=== PATIENT | female | born 1985 | race Asian ===

== ENCOUNTER 2021-07-01 06:57 | Inpatient (IN) | payer OTHER ==
[~2021-07-01] VITALS: Ht 152.4 cm; Wt 61.9 kg
--- NOTE | 2021-07-01 07:48 | PHYS DOC ---
General Adult EDM: Chief Complaint: SOB HPI: HPI: 35-year-old female presents with COVID-19. The patient took a home test about 10 days ago that confirmed she has COVID-19. She is also here with her who has COVID-19. They came in today because they called the [facility]Nurse line and they advised that they come in for evaluation. She has been having some mild shortness of breath and frequent cough, general fatigue and body aches. She denies chest pain. Fevers up to 101. Review of Systems: Review of Systems: Constitutional: Fever, body aches, fatigue Eyes: Denies change in visual acuity HENT: Denies nasal congestion or sore throat Respiratory: Cough with shortness of breath Cardiovascular: Denies chest pain or edema GI: Denies abdominal pain, nausea, vomiting, bloody stools or diarrhea : Denies dysuria Musculoskeletal: Denies back pain or joint pain Integument: Denies rash Neurologic: Denies headache, focal weakness or sensory changes Endocrine: Denies polyuria or polydipsia Lymphatic: Denies swollen glands Psychiatric: Denies depression or anxiety Physical Exam: PE: Constitutional: Well developed, well nourished, no acute distress, non-toxic appearance. [] HENT: Normocephalic, atraumatic, bilateral external ears normal, oropharynx moist, no oral exudates, nose normal. [] Eyes: PERRLA, EOMI, conjunctiva normal, no discharge. [] Neck: Normal range of motion, no tenderness, supple, no stridor. [] Cardiovascular: Heart rate 90, regular rhythm, no murmur [] Lungs & Thorax: Deferred due to isolation [] Abdomen: Bowel sounds normal, soft, no tenderness, no masses, no pulsatile masses. [] Skin: Warm, dry, no erythema, no rash. [] Back: No tenderness, no CVA tenderness. [] Extremities: No tenderness, no cyanosis, no clubbing, ROM intact, no edema. [] Neurologic: Alert and oriented X 3, normal motor function, normal sensory function, no focal deficits noted. [] Psychologic: Affect normal, judgement normal, mood normal. [] EKG: EKG: Sinus rhythm, rate 90, normal axis, no ST elevation or depression. [] Radiology/Procedures: Radiology/Procedures: [] Impressions: AP chest. HISTORY: Covid positive AP view was taken of the chest. There are mild hazy bilateral areas of infiltrate consistent with Covid pneumonia. Heart is normal in size. There is no pleural effusion. IMPRESSION: 1. Bilateral infiltrates consistent with pneumonia. Electronically signed by: Lloyd Porter MD (07/01/2021 7:46 AM) [id number] DICTATED AND SIGNED BY: LLOYD PORTER MD DATE: 07/01/21 0745 CC: BRANDON GILMORE DO; PCP,NO ~MTH0 0 Heart Score: C/O Chest Pain: N/A Risk Factors: Risk Factors: DM, Current or recent (<one month) smoker, HTN, HLP, family history of CAD, obesity. Risk Scores: Score 0 - 3: 2.5% MACE over next 6 weeks - Discharge Home Score 4 - 6: 20.3% MACE over next 6 weeks - Admit for Clinical Observation Score 7 - 10: 72.7% MACE over next 6 weeks - Early Invasive Strategies Course & Med Decision Making: Course & Med Decision Making Pertinent Labs and Imaging studies reviewed. (See chart for details) The patient's labs are significant for hemoglobin of 7. The patient has no previous history of anemia. I do not have any history in my chart. Her chest x-ray is suggestive of bilateral pneumonia consistent with COVID-19. I will treat her with azithromycin alone as she has a penicillin allergy. Have also given her 10 mg of dexamethasone. I spoke with hospitalist, Dr. Simms and since the patient is on the bubble for transfusion, she does not meet criteria. We will give her 400 mg of IV iron. I have advised that she follow-up with her primary physician about her iron deficiency anemia. I will discharge her with a prescription for azithromycin. If her condition worsens in any way, she will return to the emergency room. She is stable for discharge at this time. [] Dragon Disclaimer: Dragon Disclaimer: This electronic medical record was generated, in whole or in part, using a voice recognition dictation system. Departure Departure: Impression: Primary Impression: COVID-19 Additional Impression: Iron deficiency anemia Qualified Codes: D50.9 - Iron deficiency anemia, unspecified Disposition: HOME / SELF CARE / HOMELESS Condition: STABLE Referrals: PCP,PERRY (PCP) Patient Instructions: Iron Deficiency Anemia, [id number] Additional Instructions: You have been tested for or diagnosed with COVID-19. It is an infection caused by a new type of coronavirus. COVID-19 will cause cold-like or mild flu symptoms in most. It can cause more severe symptoms like problems breathing in some. There is no treatment for COVID-19. The body will clear the infection over time. Self-care will help to ease discomfort. Steps to Take: Self-Care Rest as needed. Healthy habits may help you feel better. Steps include: Choose healthy foods including fruits and vegetables. Drink water throughout the day. Get plenty of sleep each night. If you smoke, try to quit. It may ease breathing. Avoid alcohol. Keep Others Healthy The virus can spread to others. Droplets are released every time you sneeze or cough. The droplets can get into the mouth, nose, or eyes of people near you and lead to infection. To lower the chances of spreading COVID-19 to others: Stay at home until your doctor has said it is safe to leave. If you tested positive this will mean staying isolated until both of the following are true: At least 7 days have passed since the start of illness. You are free of fever for at least 72 hours without the use of medicine. During this time: - Avoid public areas, events, or transportation. Do not return to work or school until your doctor has said it is safe to do so. - Call ahead if you need to go to a medical center. Let them know you may have COVID-19. It will help them guide you where to go. They may also ask you to wear a facemask when you come to the office. - If you call for emergency medical services, let them know you may have COVID- 19. While at home: - Try to avoid close contact with others. Stay about 6 feet away. - If possible, spend most of your time in a separate room from others. - Use a face mask if you will be in close contact with others such as sharing a room or vehicle. - Have someone wipe down common surfaces in the home. Use household layout artist every day on areas like doorknobs, counters, or sinks. - Cough or sneeze into a tissue. Throw the tissue away right after use. If a tissue is not available, cough or sneeze into your elbow. - Wash your hands often. Wash them after sneezing or coughing. Use soap and water and wash for at least 20 seconds. Alcohol based hand fur dry cleaner hand can be used if soap and water is not available. - Do not prepare food for others. Avoid sharing personal items like forks, sp oons, or toothbrushes. - Avoid close contact with pets while you are sick. There is no evidence of the virus passing to pets. This is a safety step until more is known about this virus. Isolation can be frustrating. Social interaction can help. Keep in touch with friends and family through phone and tech options. You can still interact with others in your home, just keep a safe distance of about 6 feet. Follow-up: Your doctors office will check in with you to see if there are any changes in your health. You may be asked to keep track of symptoms to share with them. They will also let you know when you are clear to be in public again. Problems to Look Out For: Contact your doctor if your recovery is not going as you expect. Get emergency care if you have problems such as: - Trouble breathing - Nonstop chest pain or pressure - Changes in awareness, confusion, or problems waking - Lips or face have bluish color - Worsening of symptoms If you think you have an emergency, call for emergency medical services right away. As taken from [facility] BRANDON GILMORE DO Jul 01, 2021 07:48
--- NOTE | 2021-07-01 07:53 | EKG ---
[address] [address] Test Date: 2021-07-01 Test Time: 07:41:59 Pat Name: ELIO GODOY Department: Room: Gender: F Cement Paver: : 1985 Requested By: BRANDON GILMORE Order Number: [id number] Reading MD: Measurements Intervals [place] Rate: 90 P: 41 ND: 120 QRS: 85 QRSD: 72 T: 15 QT: 374 QTc: 462 Interpretive Statements SINUS RHYTHM NORMAL ECG RI6.02 No previous ECG available for comparison
[2021-07-01 08:39] LABS: BASO % 0 % (0-3); EOS % 0 % (0-3); HEMATOCRIT 24.1 % (36.0-47.0); LYMPH # 1.2 x10^3/uL (1.0-4.8); LYMPH % 17 % (24-48); MEAN CORPUSCULAR HEMOGLOBIN 17 pg (25-35); MEAN CORPUSCULAR HGB CONC 29 g/dL (31-37); MEAN CORPUSCULAR VOLUME 58 fL (79-100); MONO # 0.5 x10^3/uL (0.0-1.1); MONO % 7 % (0-9); NEUT # 5.1 x10^3uL (1.8-7.7); NEUT % 75 % (31-73); PLATELET COUNT 284 x10^3/uL (140-400); RED BLOOD COUNT 4.17 x10^6/uL (3.50-5.40); RED CELL DISTRIBUTION WIDTH 22.8 % (11.5-14.5); WHITE BLOOD COUNT 6.8 x10^3/uL (4.0-11.0)
[2021-07-01 08:54] LABS: CALCIUM 8.2 mg/dL (8.5-10.1); CREATININE 0.7 mg/dL (0.6-1.0); GFR 94.2; POTASSIUM 3.2 mmol/L (3.5-5.1)
[2021-07-01 09:00] LABS: ALBUMIN 2.9 g/dL (3.4-5.0); ALBUMIN/GLOBULIN RATIO 0.7 (1.0-1.7); TOTAL BILIRUBIN 0.4 mg/dL (0.2-1.0); TOTAL PROTEIN 6.9 g/dL (6.4-8.2)
[2021-07-01] MEDS ORDERED: IRON SUCROSE COMPLEX 400 MG in IV NORMAL SALINE 250ML 250 ML IV ONE (09:45)
[2021-07-01] MEDS ORDERED: DEXAMETHASONE SOD PHOS 10 MG/ML VIAL. IVP ONE (09:45)
[2021-07-01] MEDS ORDERED: AZITHROMYCIN 500 MG in IV NORMAL SALINE 250ML 250 ML IV ONE (09:45)
[2021-07-01] MEDS ORDERED: IV NORMAL SALINE 250ML 250 ML ONE (10:13)
[2021-07-01] MEDS ORDERED: AZITHROMYCIN 500 MG VIAL. IV ONE (10:13)
[2021-07-01] MEDS ORDERED: ONDANSETRON PF 4 MG/2 ML VIAL. ONE (11:11)
[2021-07-01] MEDS ORDERED: ONDANSETRON PF 4 MG/2 ML VIAL. IVP ONE (11:15)
[2021-07-01 11:47] LABS: HYPOCHROMIA PRESENT; POLYCHROMASIA PRESENT; TEAR DROP CELLS PRESENT
[2021-07-01 11:48] LABS: ANISOCYTOSIS PRESENT; MICROCYTOSIS PRESENT; OVALOCYTES PRESENT; SCHISTOCYTES FEW
[2021-07-01 11:50] LABS: PLT ESTIMATE ADEQUATE (ADEQUATE); TARGET CELLS PRESENT
[2021-07-01] MEDS ORDERED: ONDANSETRON PF 4 MG/2 ML VIAL. IVP PRN (15:30)
[2021-07-01 17:39] VITALS: BP 134/61
[2021-07-01 20:15] VITALS: BP 122/75
[2021-07-01] MEDS ORDERED: ACETAMINOPHEN 325 MG TABLET PO PRN (20:15)
[2021-07-01] MEDS: DEXAMETHASONE SOD PHOS 4 MG/ML VIAL. IVP SCH (20:49)
[2021-07-01 22:46] VITALS: BP 136/81
[2021-07-02 05:14] VITALS: BP 105/67
[2021-07-02 06:26] LABS: BASO % 0 % (0-3); EOS % 0 % (0-3); HEMATOCRIT 24.2 % (36.0-47.0); LYMPH # 0.8 x10^3/uL (1.0-4.8); LYMPH % 29 % (24-48); MEAN CORPUSCULAR HEMOGLOBIN 17 pg (25-35); MEAN CORPUSCULAR HGB CONC 29 g/dL (31-37); MEAN CORPUSCULAR VOLUME 58 fL (79-100); MONO # 0.2 x10^3/uL (0.0-1.1); MONO % 9 % (0-9); NEUT # 1.8 x10^3uL (1.8-7.7); NEUT % 62 % (31-73); PLATELET COUNT 380 x10^3/uL (140-400); RED BLOOD COUNT 4.19 x10^6/uL (3.50-5.40); RED CELL DISTRIBUTION WIDTH 23.1 % (11.5-14.5); WHITE BLOOD COUNT 2.9 x10^3/uL (4.0-11.0)
[2021-07-02] MEDS: DEXAMETHASONE SOD PHOS 4 MG/ML VIAL. IVP SCH (08:27)
--- NOTE | 2021-07-02 11:02 | HP ---
ADMIT DATE: 07/01/2021 ATTENDING PHYSICIAN: Dr. Simms. CHIEF COMPLAINT: Shortness of breath. HISTORY OF PRESENT ILLNESS: The patient is a 35-year-old female of [place] origin. She and her where here visiting family members from [place]. She had a home test 10 days ago testing positive for COVID-19. She was short of breath. They were advised to come to the ED. She has had fevers up to 101 degrees Fahrenheit. In addition, she had a low hemoglobin of 7.0 gram, very small indices with MCV of 59. She was given a dose of Venofer in the ED. Initially, she was scheduled to go home, but because of the shortness of breath requires slight amount of supplemental oxygen. She was admitted for further treatment and evaluation. She was given Decadron last night. PAST MEDICAL HISTORY: Significant for chronic iron deficiency. She is a nonsmoker and nondrinker. ALLERGIES: SHE HAS ALLERGIES TO PENICILLIN AND HYDROMORPHONE. EXACT REACTION IS UNCLEAR. MEDICATIONS: She has been on iron in the past. FAMILY HISTORY: Mom and dad are still in [place]. They are in fairly good health. She is . She has a 5-year-old son. REVIEW OF SYSTEMS: All other systems reviewed and turned to be negative. PHYSICAL EXAMINATION: GENERAL: When I saw her, this is a pleasant young female. INITIAL VITAL SIGNS: Showed a blood pressure of 105/67, pulse is 71 and regular. She is afebrile. Oxygen saturation 93% on room air by the time I saw her. HEENT: Head is without trauma. Pupils are reactive. Sclerae nonicteric. Oropharynx clear. NECK: Supple, no bruits. LUNGS: Good breath sounds without any rales or rhonchi. CARDIOVASCULAR: Regular heart tones. ABDOMEN: Soft. EXTREMITIES: Without edema. NEUROLOGIC: Focally intact. SKIN: Warm and dry. LABORATORY DATA: The hemoglobin was 7.0 g/dL, white count 6800. Chemistry panel unremarkable. Chest x-ray on admission showed hazy bilateral infiltrates consistent with atypical pneumonia. ASSESSMENT: 1. A 35-year-old female with COVID pneumonia. 2. Mild dehydration. 3. Mild hypoxemia, improved. 4. Iron deficiency anemia that is chronic. PLAN: 1. Admit to the inpatient observation status. 2. Supplemental oxygen to be weaned down. 3. Diet as tolerated. 4. Oral iron therapy. 5. Empiric corticosteroids. MIGUEL DR: Josee TID: [id number]
[2021-07-02 11:14] VITALS: BP 103/60
--- NOTE | 2021-07-02 12:01 | DS ---
DATE OF DISCHARGE: 07/02/2021 ATTENDING PHYSICIAN: Dr. Simms. FINAL DISCHARGE DIAGNOSES: 1. COVID pneumonia. 2. Hypoxemia, resolved. 3. Iron deficiency. HISTORY AND PHYSICAL: The patient is a 35-year-old female visiting from [place]. She and her both have been ill. They were diagnosed with a rapid test for COVID 10 days ago. She has mild nonproductive cough. She was a little bit hypoxemic in the ED. She was admitted for overnight observation. She also had a hemoglobin of 7.0 mg/dL. She was given Venofer in the ED. PHYSICAL EXAMINATION: Please see the dictated note. PERTINENT LABORATORY AND X-RAY STUDIES: Are on the database, normal chemistry panel, hemoglobin was still 7.0 g/dL with MCV of 58 suggesting iron deficiency anemia. COURSE IN THE HOSPITAL: The patient was admitted overnight. Supplemental oxygen was added and weaned off the next morning. When I saw her, her room air saturation was 93% on room air. She felt well. She was ready for discharge. I recommended prednisone 40 mg p.o. daily for the next 7 days and stop, Vitron-C one b.i.d. I recommend a followup visit with her primary care physician in 1 month to recheck her CBC. In the meantime, she understands quarantine precautions. She should at least quarantine for the next 7 days. The patient was then discharged from our hospital in stable condition with explicit drug and followup care. SWATI/DYLON GAVIN: SWATI/velma TID: [id number]
== END 2021-07-02 12:30 | disposition home or self-care (01) | DRG 177 ==
LOC: ER 06:57 → 1 SOUTH 15:30
PROVIDERS: ADMIT Hospitalist; ATTEND Hospitalist
DX: U07.1 COVID-19 (principal); J12.82 Pneumonia due to coronavirus disease 2019; Z88.0 Allergy status to penicillin; Z88.8 Allergy status to other drugs, medicaments and biological substances; R09.02 Hypoxemia; E86.0 Dehydration; D50.9 Iron deficiency anemia, unspecified
CPT/HCPCS: 36415; 71045; 80053; 84484; 85025; 93005; 96365; 96366; 96367; 96375; J0456; J1100; J1756; J2405; J7050; 99285-25